=== PATIENT | male | born 1995 | race Caucasian/White ===

== ENCOUNTER 2017-07-19 01:45 | Emergency (ER) | payer OTHER ==
[~2017-07-19] VITALS: Ht 177.8 cm; Wt 118.0 kg
[2017-07-19 01:45] VITALS: BP 167/86
== END 2017-07-19 04:30 | disposition left against medical advice (07) ==
LOC: ER 01:45
DX: R42 Dizziness and giddiness (principal); Z53.21 Procedure and treatment not carried out due to patient leaving prior to being seen by health care provider
CPT/HCPCS: 93005